=== PATIENT | male | born 1955 | race Caucasian/White ===

== ENCOUNTER 2021-05-18 00:25 | Inpatient (IN) | payer OTHER ==
[2021-05-18] MEDS ORDERED: ACETAMINOPHEN 1000 MG/100 ML VIAL IVPB ONE (01:38)
[2021-05-18] MEDS ORDERED: LACTATED RINGERS SOLUTION 1000 ML INFUS.BAG IV ONE (01:39)
[2021-05-18] MEDS ORDERED: ACETAMINOPHEN INJECTION 100 ML IVPB ONE (01:51)
[2021-05-18 02:34] LABS: CHLORIDE 104 mmol/L (98-107); SODIUM 140 mmol/L (136-145)
[2021-05-18 02:36] LABS: ALBUMIN 2.9 g/dl (3.4-5.0); ANION GAP 5 MMOL/L (8-16); BLOOD UREA NITROGEN 16.4 mg/dL (7-18); CALCIUM 8.7 mg/dL (8.5-10.1); CO2 30 mmol/L (21-32)
[2021-05-18 02:37] LABS: GLUCOSE,RANDOM 93 mg/dL (74-106)
[2021-05-18 02:40] LABS: CREATININE 0.5 mg/dL (0.55-1.3); SGOT/AST 10 U/L (15-37); SGPT/ALT 7 U/L (13-61)
[2021-05-18 02:41] LABS: BILIRUBIN,TOTAL 0.5 mg/dL (0.2-1); TOT PROT 6.7 g/dl (6.4-8.2)
[2021-05-18 02:42] LABS: ALK PHOS 109 U/L (45-117)
[2021-05-18 03:10] LABS: BASO % 0.6 % (0-2.0); EOS % 0.3 % (0-4.5); HEMATOCRIT 23.4 % (35.4-49); LYMPH % 18.2 % (8-40); MCHC 29.8 g/dl (32.0-35.9); MEAN CELL VOLUME 64.6 fl (80-96); MEAN PLT VOLUME 7.2 fl (7.5-11.1); MONO % 11.1 % (3.8-10.2); NEUT % 69.8 % (42.8-82.8); PLATELET COUNT 287 10^3/uL (134-434); RBC 3.62 M/mm3 (4.00-5.60); WHITE BLOOD COUNT 5.9 K/mm3 (4.0-10.0)
[2021-05-18 03:22] LABS: MCH 19.3 pg (25.7-33.7)
[2021-05-18 04:07] LABS: URINE APPEARANCE CLEAR; URINE BILIRUBIN NEGATIVE (NEGATIVE); URINE COLOR YELLOW; URINE GLUCOSE (UA) NEGATIVE (NEGATIVE); URINE KETONE NEGATIVE (NEGATIVE); URINE LEUK ESTERASE NEGATIVE (NEGATIVE); URINE NITRITE NEGATIVE (NEGATIVE); URINE PROTEIN NEGATIVE (NEGATIVE); URINE UROBILINOGEN 0.2 mg/dL (0.2-1.0)
[2021-05-18 04:36] LABS: ANISOCYTOSIS 3+; MACROCYTOSIS 0; OVALOCYTE 2+; PLATELET ESTIMATE NORMAL
[2021-05-18] MEDS ORDERED: ACETAMINOPHEN 325 MG TABLET (FP) PO PRN (05:46)
[2021-05-18] MEDS ORDERED: GABAPENTIN 100 MG CAPSULE ONE (06:42)
[2021-05-18] MEDS: GABAPENTIN 100 MG CAPSULE PO SCH ×3 (06:48→21:52)
[2021-05-18] MEDS ORDERED: SODIUM CHLORIDE 1,000 ML IV SCH (07:30)
[2021-05-18] MEDS ORDERED: PT OWN MED DRAWER 7, Y5N ONE ×2 (08:01→14:23)
[2021-05-18] MEDS ORDERED: ENOXAPARIN NA (PORCINE) 40 MG/0.4 ML DISP.SYRIN SQ SCH (10:00)
[2021-05-18] MEDS ORDERED: ASPIRIN 81 MG CHEWABLE TABLETS PO SCH (10:00)
[2021-05-18 10:24] LABS: BASO % 0.6 % (0-2.0); EOS % 0.2 % (0-4.5); HEMATOCRIT 22.5 % (35.4-49); LYMPH % 14.1 % (8-40); MCHC 29.9 g/dl (32.0-35.9); MEAN CELL VOLUME 63.8 fl (80-96); MEAN PLT VOLUME 6.8 fl (7.5-11.1); NEUT % 75.1 % (42.8-82.8); PLATELET COUNT 274 10^3/uL (134-434); RBC 3.53 M/mm3 (4.00-5.60); WHITE BLOOD COUNT 4.9 K/mm3 (4.0-10.0)
[2021-05-18 10:27] LABS: MCH 19.1 pg (25.7-33.7)
[2021-05-18 10:31] LABS: HEMOGLOBIN 6.7 GM/dL (11.7-16.9)
[2021-05-18] MEDS: SENNOSIDES 8.6MG TABLET (FP) PO SCH ×3 (10:39→21:53)
[2021-05-18] MEDS: POLYETHYLENE GLYCOL (HEALTHYLAX) 3350 17 GM PACKET PO SCH ×2 (10:39→10:48)
[2021-05-18] MEDS: PANTOPRAZOLE 20 MG TABLET PO SCH ×2 (10:39→10:49)
[2021-05-18] MEDS: AMANTADINE HCL 100 MG TABLET PO SCH ×3 (10:40→21:52)
[2021-05-18] MEDS: SODIUM CHLORIDE 1,000 ML IV SCH (10:40)
[2021-05-18 10:47] LABS: CHLORIDE 105 mmol/L (98-107); SODIUM 138 mmol/L (136-145)
[2021-05-18 10:49] LABS: ALBUMIN 2.5 g/dl (3.4-5.0)
[2021-05-18 10:50] LABS: ANION GAP 3 MMOL/L (8-16); CALCIUM 8.4 mg/dL (8.5-10.1); CO2 31 mmol/L (21-32); GLUCOSE,RANDOM 86 mg/dL (74-106); MAGNESIUM 2.2 mg/dL (1.8-2.4)
[2021-05-18 10:52] LABS: CREATININE 0.5 mg/dL (0.55-1.3); SGOT/AST 9 U/L (15-37)
[2021-05-18 10:53] LABS: BILIRUBIN,TOTAL 0.7 mg/dL (0.2-1); PHOSPHOROUS 3.1 mg/dL (2.5-4.9)
[2021-05-18 10:55] LABS: ALK PHOS 100 U/L (45-117); SGPT/ALT < 6 U/L (13-61)
[2021-05-18 11:03] LABS: IRON SERUM 20 ug/dL (50-175); TOTAL IRON BINDING CAPACITY 247 ug/dL (250-450)
[2021-05-18] MEDS ORDERED: PNEUMOC 13-VAL CONJ-DIP CRM/PF 0.5 ML DISP.SYRIN IM ONE (15:00)
[2021-05-18] MEDS ORDERED: traZODone HCL 50 MG TABLET (FP) ONE (20:21)
[2021-05-18 21:35] LABS: HEMATOCRIT 27.7 % (35.4-49); HEMOGLOBIN 8.3 GM/dL (11.7-16.9); MCHC 30.1 g/dl (32.0-35.9); MEAN CELL VOLUME 65.3 fl (80-96); MEAN PLT VOLUME 6.5 fl (7.5-11.1); PLATELET COUNT 291 10^3/uL (134-434); RBC 4.24 M/mm3 (4.00-5.60); RDW 17.7 % (11.9-15.9); WHITE BLOOD COUNT 6.1 K/mm3 (4.0-10.0)
[2021-05-18 21:37] LABS: MCH 19.7 pg (25.7-33.7)
[2021-05-18] MEDS: ATORVASTATIN CA 20 MG TABLET (FP) PO SCH (21:52)
[2021-05-18] MEDS: traZODone HCL 100 MG TABLET (FP) PO SCH (21:53)
[2021-05-19] MEDS: GABAPENTIN 100 MG CAPSULE PO SCH ×3 (05:38→22:31)
[2021-05-19] MEDS: AMANTADINE HCL 100 MG TABLET PO SCH ×3 (05:38→22:31)
[2021-05-19 09:11] LABS: CHLORIDE 117 mmol/L (98-107); SODIUM 144 mmol/L (136-145)
[2021-05-19 09:15] LABS: ANION GAP 5 MMOL/L (8-16); BLOOD UREA NITROGEN 8.2 mg/dL (7-18); CO2 22 mmol/L (21-32); GLUCOSE,RANDOM 54 mg/dL (74-106)
[2021-05-19 09:18] LABS: CREATININE 0.4 mg/dL (0.55-1.3)
[2021-05-19] MEDS: PANTOPRAZOLE 20 MG TABLET PO SCH (09:21)
[2021-05-19] MEDS: SENNOSIDES 8.6MG TABLET (FP) PO SCH ×2 (09:21→22:31)
[2021-05-19] MEDS: SODIUM CHLORIDE 1,000 ML IV SCH (09:23)
[2021-05-19] MEDS: POLYETHYLENE GLYCOL (HEALTHYLAX) 3350 17 GM PACKET PO SCH (09:30)
[2021-05-19 10:02] LABS: CALCIUM 6.4 mg/dL (8.5-10.1)
[2021-05-19 10:23] LABS: BASO % 0.6 % (0-2.0); EOS % 0.2 % (0-4.5); HEMATOCRIT 18.1 % (35.4-49); LYMPH % 15.9 % (8-40); MCHC 29.8 g/dl (32.0-35.9); MEAN CELL VOLUME 65.9 fl (80-96); MEAN PLT VOLUME 6.6 fl (7.5-11.1); MONO % 10.4 % (3.8-10.2); NEUT % 72.9 % (42.8-82.8); PLATELET COUNT 193 10^3/uL (134-434); RBC 2.75 M/mm3 (4.00-5.60); RDW 17.7 % (11.9-15.9); WHITE BLOOD COUNT 4.1 K/mm3 (4.0-10.0)
[2021-05-19 10:27] LABS: MCH 19.7 pg (25.7-33.7)
[2021-05-19 10:29] LABS: HEMOGLOBIN 5.4 GM/dL (11.7-16.9)
[2021-05-19 14:14] LABS: ALBUMIN 2.5 g/dl (3.4-5.0)
[2021-05-19 14:15] LABS: BLOOD UREA NITROGEN 10.6 mg/dL (7-18); MAGNESIUM 2.2 mg/dL (1.8-2.4)
[2021-05-19 14:17] LABS: CREATININE 0.5 mg/dL (0.55-1.3)
[2021-05-19 14:18] LABS: PHOSPHOROUS 3.5 mg/dL (2.5-4.9)
[2021-05-19 14:19] LABS: BILIRUBIN,TOTAL 0.7 mg/dL (0.2-1); TOT PROT 6.1 g/dl (6.4-8.2)
[2021-05-19 14:22] LABS: BASO % 0.6 % (0-2.0); CALCIUM 8.3 mg/dL (8.5-10.1); EOS % 0.1 % (0-4.5); HEMATOCRIT 25.6 % (35.4-49); HEMOGLOBIN 7.7 GM/dL (11.7-16.9); LYMPH % 16.5 % (8-40); MCHC 30.1 g/dl (32.0-35.9); MEAN CELL VOLUME 65.5 fl (80-96); MEAN PLT VOLUME 6.9 fl (7.5-11.1); MONO % 8.1 % (3.8-10.2); NEUT % 74.7 % (42.8-82.8); PLATELET COUNT 314 10^3/uL (134-434); RBC 3.91 M/mm3 (4.00-5.60); RDW 17.4 % (11.9-15.9); WHITE BLOOD COUNT 5.6 K/mm3 (4.0-10.0)
[2021-05-19 14:23] LABS: MCH 19.7 pg (25.7-33.7)
[2021-05-19] MEDS ORDERED: LACTULOSE 20 GM/30 ML UDC (FOR RECTAL USE ONLY) PR ONE (21:12)
[2021-05-19] MEDS ORDERED: traZODone HCL 50 MG TABLET (FP) ONE ×2 (22:27→22:32)
[2021-05-19] MEDS: ATORVASTATIN CA 20 MG TABLET (FP) PO SCH (22:31)
[2021-05-19] MEDS: traZODone HCL 100 MG TABLET (FP) PO SCH (22:34)
[2021-05-20] MEDS: SODIUM CHLORIDE 1,000 ML IV SCH ×3 (02:48→15:04)
[2021-05-20] MEDS: AMANTADINE HCL 100 MG TABLET PO SCH ×3 (07:00→21:54)
[2021-05-20] MEDS: GABAPENTIN 100 MG CAPSULE PO SCH ×3 (07:00→21:54)
[2021-05-20 08:38] LABS: HEMOGLOBIN 8.3 GM/dL (11.7-16.9); MCHC 29.6 g/dl (32.0-35.9); MEAN CELL VOLUME 65.5 fl (80-96); MEAN PLT VOLUME 6.8 fl (7.5-11.1); PLATELET COUNT 321 10^3/uL (134-434); RBC 4.27 M/mm3 (4.00-5.60); WHITE BLOOD COUNT 6.4 K/mm3 (4.0-10.0)
[2021-05-20 08:40] LABS: MCH 19.4 pg (25.7-33.7)
[2021-05-20 09:02] LABS: CALCIUM 8.5 mg/dL (8.5-10.1)
[2021-05-20 09:03] LABS: BLOOD UREA NITROGEN 12.5 mg/dL (7-18)
[2021-05-20 09:06] LABS: CREATININE 0.5 mg/dL (0.55-1.3)
[2021-05-20] MEDS: PANTOPRAZOLE 20 MG TABLET PO SCH ×2 (11:04→11:10)
[2021-05-20] MEDS: POLYETHYLENE GLYCOL (HEALTHYLAX) 3350 17 GM PACKET PO SCH ×2 (11:04→11:09)
[2021-05-20] MEDS: SENNOSIDES 8.6MG TABLET (FP) PO SCH ×3 (11:05→21:54)
[2021-05-20] MEDS ORDERED: PT OWN MED DRAWER 7, Y5N ONE ×2 (13:31→21:32)
[2021-05-20 14:34] VITALS: BMI 16.3
[2021-05-20] MEDS ORDERED: traZODone HCL 50 MG TABLET (FP) ONE (21:31)
[2021-05-20] MEDS: ATORVASTATIN CA 20 MG TABLET (FP) PO SCH (21:54)
[2021-05-20] MEDS: traZODone HCL 100 MG TABLET (FP) PO SCH (21:54)
[2021-05-21] MEDS: SODIUM CHLORIDE 1,000 ML IV SCH (02:00)
[2021-05-21] MEDS ORDERED: PT OWN MED DRAWER 7, Y5N ONE ×2 (06:35→16:07)
[2021-05-21] MEDS: AMANTADINE HCL 100 MG TABLET PO SCH ×2 (06:36→16:12)
[2021-05-21] MEDS: GABAPENTIN 100 MG CAPSULE PO SCH ×2 (06:36→16:09)
[2021-05-21 08:39] LABS: HEMATOCRIT 27.2 % (35.4-49); HEMOGLOBIN 8.3 GM/dL (11.7-16.9); MCHC 30.4 g/dl (32.0-35.9); MEAN CELL VOLUME 65.2 fl (80-96); MEAN PLT VOLUME 6.7 fl (7.5-11.1); PLATELET COUNT 303 10^3/uL (134-434); RBC 4.18 M/mm3 (4.00-5.60); RDW 17.8 % (11.9-15.9); WHITE BLOOD COUNT 6.6 K/mm3 (4.0-10.0)
[2021-05-21 08:54] LABS: BLOOD UREA NITROGEN 9.6 mg/dL (7-18); CALCIUM 8.5 mg/dL (8.5-10.1)
[2021-05-21 08:57] LABS: MCH 19.9 pg (25.7-33.7)
[2021-05-21 08:58] LABS: CREATININE 0.5 mg/dL (0.55-1.3)
[2021-05-21] MEDS: SENNOSIDES 8.6MG TABLET (FP) PO SCH (09:27)
[2021-05-21] MEDS: POLYETHYLENE GLYCOL (HEALTHYLAX) 3350 17 GM PACKET PO SCH (09:28)
[2021-05-21] MEDS: PANTOPRAZOLE 20 MG TABLET PO SCH (09:28)
[2021-05-21 09:29] VITALS: BP 123/63; PULSE 85; TEMP 98.3
[2021-05-21] MEDS ORDERED: MULTIVITAMINS (DAILY MVI) TABLET (FP) PO SCH (10:00)
== END 2021-05-21 17:39 | DRG 56 ==
LOC: JER 00:25 → JERBED 03:55 → J7W 08:03
PROVIDERS: ATTEND Internal Medicine
DX: G20 Parkinson's disease (principal); E43 Unspecified severe protein-calorie malnutrition; R64 Cachexia; Z68.1 Body mass index [BMI] 19.9 or less, adult; C45.7 Mesothelioma of other sites; I25.10 Atherosclerotic heart disease of native coronary artery without angina pectoris; E78.5 Hyperlipidemia, unspecified; F32.9 Major depressive disorder, single episode, unspecified; D64.9 Anemia, unspecified; G93.89 Other specified disorders of brain; J44.9 Chronic obstructive pulmonary disease, unspecified; W18.39XA Other fall on same level, initial encounter; Y92.098 Other place in other non-institutional residence as the place of occurrence of the external cause
CPT/HCPCS: 36415; 36430; 70450-TC; 71250-TC; 72125-TC; 80048; 80053; 81003; 82272; 82607; 82728; 83540; 83550; 83735; 84100; 84484; 85025; 85027; 86850; 86900; 86901; 86922; 87086; 93005; 93010; 97116-GP; 97162-GP; 99285-25; C9803; J0131; P9058; U0003; U0005